=== PATIENT | male | born 1985 | race Caucasian/White ===

== ENCOUNTER → 2020-05-01 07:53 | Outpatient (BNVA) | payer OTHER, SELFPAY | PROVIDERS: Family Provider Family Medicine; Visit Provider Specialist | DX: G47.419 Narcolepsy without cataplexy (principal); G43.711 Chronic migraine without aura, intractable, with status migrainosus | CPT/HCPCS: 64615; 99214; J0585 ==

== ENCOUNTER 2022-07-07 16:25 | Emergency (ER) | payer OTHER, SELFPAY ==
[2022-07-07 16:37] VITALS: BP 145/97; PULSE 73; RESP 18; TEMP 37; O2SAT 98; BMI 274.0
--- NOTE | 2022-07-07 16:50 | W.ED.NAVMDI ---
HPI - Nausea/Vomiting/Diarrhea General: Chief complaint: Nausea/Vomiting/Diarrhea Stated complaint: Gi issues was sent from [facility] Time Seen by Provider: 07/07/22 16:47 History of Present Illness: 37-year-old male patient comes in today for complaints of persistent diarrhea with blood in for the last 2 weeks. Patient reports some mild weight loss. Patient denies any nausea or vomiting. Patient denies camping, travel outside the country or state, or fevers. Patient appears mildly unwell. Patient appears in no pain. Patient denies any chronic medical problems or recent surgeries. Patient was evaluated at the [facility] and was referred to the ER for further evaluation. Associated nausea: Yes Associated symtoms: Reports nausea; Denies chest pain Review of Systems General: Reports: 10 or more systems reviewed and unremarkable except in HPI and below Card: Denies: chest pain Resp: Denies: dyspnea GI: Reports: nausea, diarrhea and hematochezia; Denies: vomiting PFSH ED PFSH: Family History Other Cancer Hypertension Denies family history of Diabetes CAD (coronary artery disease) Stroke Social History Smoking and tobacco status: never smoked Alcohol intake: current Alcohol intake frequency: holidays/special occasions only History of recent travel: Yes Physical Exam Const: COMMON NORMALS: alert HENMT: COMMON NORMALS: normocephalic HEAD & SCALP: normocephalic Neck/C-Spine: COMMON NORMALS: full ROM Resp: COMMON NORMALS: normal respiratory effort Cardio: COMMON NORMALS: regular rate RATE: regular rate GI: AUSCULTATION: Yes normoactive bowel sounds PALPATION: No Tenderness to palpation present (GI) Extremity: COMMON NORMALS: normal to inspection Neuro: SENSORIUM/ORIENTATION: Yes alert Skin: COMMON NORMALS: no rashes or lesions noted GENERAL SKIN EXAM: no rashes or lesions noted Course Vital Signs: Vital signs: Vital Signs Temperature 98.6 F 07/07/22 16:37 Pulse Rate 62 07/07/22 17:43 Respiratory Rate 18 07/07/22 16:37 Blood Pressure 117/58 07/07/22 19:16 Pulse Oximetry 99 07/07/22 19:16 Oxygen Delivery Me thod 07/07/22 19:16 MDM - Nausea/Vomiting/Diarrhea Medical Decision Making 37-year-old male patient comes in today with complaints of diarrhea with blood in it for the last 3 weeks. Patient appears nontoxic. Patient appears in mild to no pain. On exam bowel sounds are present. Abdomen soft nontender. Vital signs are normal. Differential diagnosis includes infectious diarrhea, diverticulitis, colitis. CBC CMP were unremarkable. Stool for occult blood was negative. Lactoferrin was positive. CT of the abdomen and pelvis showed no acute pathology. Reviewed the exam with patient recommended treatment with Cipro 500 mg 1 tablet twice a day for 3 days. We had outstanding labs for stool cultures, O&P, and C. difficile. I requested case management for patient to be followed up with internal medicine regarding persistent bloody diarrhea and probable need for colonoscopy. Patient was agreeable to this plan. Lab Data : 07/07/22 17:30 07/07/22 17:30 Radiology Impressions Abdomen/Pelvis CT 07/07/22 17:28 IMPRESSION: No acute findings. Laboratory Results WBC 11.2 10^3/uL (4.0-10.0) H 07/07/22 17:30 RBC 5.47 10^6/uL (4.1-5.3) H 07/07/22 17:30 Hgb 15.7 g/dL (11.7-16.6) 07/07/22 17:30 Hct 46.2 % (42.0-52.0) 07/07/22 17:30 MCV 84.5 fl (80-94) 07/07/22 17:30 MCH 28.7 pg (28.0-34.0) 07/07/22 17:30 MCHC 34.0 g/dL (30.0-36.0) 07/07/22 17:30 RDW 12.5 % (12.1-15.1) 07/07/22 17:30 Plt Count 303 10^3/cmm (130-400) 07/07/22 17:30 MPV 9.5 fL (7.4-10.4) 07/07/22 17:30 Neut % (Auto) 74.2 % 07/07/22 17:30 Lymph % (Auto) 19.1 % 07/07/22 17:30 Lumpkin % (Auto) 4.9 % 07/07/22 17:30 Eos % (Auto) 0.7 % 07/07/22 17:30 Baso % (Auto) 0.7 % 07/07/22 17:30 Neut # (Auto) 8.26 10^3/uL (1.8-7.7) H 07/07/22 17:30 Lymph # (Auto) 2.1 10^3/uL (0.8-4.8) 07/07/22 17:30 [place]umpkin # (Auto) 0.6 10^3/uL (0.2-0.9) 07/07/22 17:30 Eos # (Auto) 0.1 10^3/uL (0.0-0.8) 07/07/22 17:30 Baso # (Auto) 0.1 10^3/uL (0.0-0.1) 07/07/22 17:30 Nucleated RBC % (auto) 0 % 07/07/22 17: Nucleated RBCs # 0.0 /100WBC 07/07/22 17:30 Sodium 140 mmol/L (136-145) 07/07/22 17:30 Potassium 3.7 mmol/L (3.5-5.1) 07/07/22 17:30 Chloride 105 mmol/L (98-107) 07/07/22 17:30 Carbon Dioxide 24 mmol/L (22-29) 07/07/22 17:30 Anion Gap 14.7 (5-19) 07/07/22 17:30 BUN 14 mg/dL (6-20) 07/07/22 17:30 Creatinine 0.8 mg/dL (0.7-1.2) 07/07/22 17:30 GFR Calculation 110.0 mL/min (90-130) 07/07/22 17:30 Glucose 97 mg/dL (65-115) 07/07/22 17:30 Calculated Osmolality 290 mOsm/kg (285-295) 07/07/22 17:30 Calcium 9.0 mg/dL (8.5-10.5) 07/07/22 17:30 Total Bilirubin 0.8 mg/dL (0.15-1.2) 07/07/22 17:30 AST 21 U/L (0-40) 07/07/22 17:30 ALT 26 U/L (0-41) 07/07/22 17:30 Alkaline Phosphatase 46 IU/L (40-130) 07/07/22 17:30 Total Protein 7.0 g/dL (6.6-8.7) 07/07/22 17:30 Albumin 4.5 g/dL (3.5-5.2) 07/07/22 17:30 Globulin 2.5 g/dL (1.3-4.6) 07/07/22 17:30 Lipase 34 U/L (13-60) 07/07/22 17:30 Urine Color Yellow (Yellow) 07/07/22 17:15 Urine Appearance Clear (CLEAR) 07/07/22 17:15 Urine pH 5 (5-7) 07/07/22 17:15 Ur Specific Pearl 1.025 (1.005-1.030) 07/07/22 17:15 Urine Protein Neg (Negative) 07/07/22 17:15 Urine Glucose (UA) Norm (Normal) 07/07/22 17:15 Urine Ketones Negative (Negative) 07/07/22 17:15 Urine Blood Neg (Negative) 07/07/22 17:15 Urine Nitrate Negative (Negative) 07/07/22 17:15 Urine Bilirubin Neg (Negative) 07/07/22 17:15 Urine Urobilinogen Norm mg/dL (Negative) 07/07/22 17:15 Ur Leukocyte Esterase Negative (Negative) 07/07/22 17:15 Discharge Plan Discharge Patient Disposition: Home Clinical Impression: Intestinal infection due to bacteria causing bloody diarrhea Condition: Stable Prescriptions: New ciprofloxacin HCl 500 mg tablet 500 mg PO BID Qty: 5 0RF No Action modafinil [Provigil] 100 mg tablet 300 mg PO DAILY ibuprofen [IBU] 800 mg tablet 800 mg PO Q8H PRN aspirin [Aspir-81] 81 mg tablet,delayed release (DR/EC) 81 mg PO DAILY bupropion HCl 300 mg tablet extended release 24 hr 300 mg PO QAM Discharge Orders: Discharge ED (Routine); Ordered 07/07/22 Ordered By: Shon Mckee Referrals: Rosalba Mota RESIDENTIAL ADVISOR-C [Primary Care Provider] - Discharge Diet: Usual diet Discharge Activity: Increase activity as tolerated Patient Instructions: Dehydration (ED) Activity Restrictions/Additional Instructions: Take Cipro 500 mg 1 tablet twice a day for a total of 6 doses. Drink plenty of water with medications. Follow-up with primary care. I will place an order with case management to have you follow-up with gastroenterology specialist for further evaluation for endoscopy. Return to the ER for fever greater than 100.4, inability to hold fluids down, or new concerns. Coding Level of Care Code ED Diversity Manager for Chg Fwd Exam Comprehensive
--- NOTE | 2022-07-07 17:28 | CTR_ITS ---
PROCEDURE INFORMATION: Exam: CT Abdomen And Pelvis With Contrast Exam date and time: 07/07/2022 6:49 PM Age: 37 years old Clinical indication: Other: Blood in stool; Additional info: Concern for infection or abscess, blood in stool TECHNIQUE: Imaging protocol: Computed tomography of the abdomen and pelvis with contrast. Radiation optimization: All CT scans at this facility use at least one of these dose optimization techniques: automated exposure control; mA and/or kV adjustment per patient size (includes targeted exams where dose is matched to clinical indication); or iterative reconstruction. Contrast material: OMNIPAQUE 350; Contrast volume: 90 ml; Contrast route: INTRAVENOUS (IV); COMPARISON: No relevant prior studies available. RADIATION DOSE METRICS: Total DLP (mGy-cm): 645.53 FINDINGS: Lungs: Lung bases are clear. Diaphragm: There is a small sliding-type hiatal hernia. Liver: The liver is normal. Gallbladder and bile ducts: The gallbladder is normal. There is no biliary dilation. Pancreas: The pancreas is unremarkable. Spleen: The spleen is unremarkable. Adrenal glands: The adrenal glands are unremarkable. Kidneys and ureters: The kidneys are unremarkable. No hydronephrosis or stones. No ureteral dilation. Stomach and bowel: The stomach is decompressed, preventing meaningful evaluation of wall thickness. The small bowel is nondilated. The colon is unremarkable. Appendix: The appendix is normal. Intraperitoneal space: There is no free air or significant intraperitoneal free fluid. Vasculature: The aorta is unremarkable. There is no aneurysm. The portal, splenic and superior mesenteric veins are patent. Lymph nodes: There is no lymphadenopathy in the retroperitoneum, mesentery, pelvis or inguinal regions. Urinary bladder: The urinary bladder is unremarkable. Reproductive: The prostate and seminal vesicles are unremarkable. Bones/joints: Bones are unremarkable. Soft tissues: There is a small fat containing umbilical hernia. CT/CT abdomen pelvis w con* [id number] IMPRESSION: No acute findings.
[2022-07-07 17:42] LABS: Basophils # 0.1 10^3/uL (0.0-0.1); Basophils % 0.7 %; Eosinophils # 0.1 10^3/uL (0.0-0.8); Eosinophils % 0.7 %; Hematocrit 46.2 % (42.0-52.0); Hemoglobin 15.7 g/dL (11.7-16.6); Lymphocytes # 2.1 10^3/uL (0.8-4.8); Lymphocytes % 19.1 %; Mean Corpuscular Hemoglobin 28.7 pg (28.0-34.0); Mean Corpuscular Volume 84.5 fl (80-94); Mean Platelet Volume 9.5 fL (7.4-10.4); Monocytes # 0.6 10^3/uL (0.2-0.9); Monocytes % 4.9 %; Neutrophils # 8.26 10^3/uL (1.8-7.7); Neutrophils % 74.2 %; Nucleated Red Blood Cells % 0 %; Platelet Count 303 10^3/cmm (130-400); Red Blood Count 5.47 10^6/uL (4.1-5.3); Red Cell Distribution Width 12.5 % (12.1-15.1); White Blood Count 11.2 10^3/uL (4.0-10.0)
[2022-07-07 17:43] VITALS: BP 116/66; PULSE 62; O2SAT 96
[2022-07-07 17:43] LABS: Add Urine Microscopic? NO; Charge for UA Resulting for Rev
[2022-07-07 17:44] LABS: Blood Urine Neg (Negative); Glucose Urine UA Norm (Normal); Ketones Urine Negative (Negative); Protein Urine Neg (Negative); Specific Gravity, Urine 1.025 (1.005-1.030); Urine Appearance Clear (CLEAR); Urine Color Yellow (Yellow); pH Urine 5 (5-7)
[2022-07-07 17:45] LABS: Bilirubin Urine Neg (Negative); Leukocyte Esterase Urine Negative (Negative); Nitrate Urine Negative (Negative); Urobilinogen Urine Norm (Negative)
[2022-07-07] MEDS: sodium chloride 0.9% 1,000 ML 999 ML IV (18:03)
[2022-07-07 18:12] LABS: Alanine Aminotransferase 26 U/L (0-41); Albumin Level 4.5 g/dL (3.5-5.2); Alkaline Phosphatase 46 IU/L (40-130); Aspartate Amino Transferase 21 U/L (0-40); Blood Urea Nitrogen 14 mg/dL (6-20); Carbon Dioxide 24 mmol/L (22-29); Chloride 105 mmol/L (98-107); Globulin 2.5 g/dL (1.3-4.6); Glucose 97 mg/dL (65-115); Lipase 34 U/L (13-60); Osmolality Calculated 290 mOsm/kg (285-295); Sodium 140 mmol/L (136-145); Total Bilirubin 0.8 mg/dL (0.15-1.2)
[2022-07-07 18:28] LABS: Anion Gap 14.7 (5-19); Potassium 3.7 mmol/L (3.5-5.1)
--- NOTE | 2022-07-07 19:02 | PC.NURSE ---
assumed care of patient at this time.
[2022-07-07 19:16] VITALS: BP 117/58; O2SAT 99
[2022-07-07] MEDS: ciprofloxacin 500 mg Tablet PO (19:43)
[2022-07-07 19:48] VITALS: PULSE 79; RESP 19; O2SAT 99
[2022-07-07] MEDS: iohexol 350 mg/mL 100 mL Btl IV (20:13)
--- NOTE | 2022-07-09 08:40 | DCPLANNER ---
Addendum entered by Kymberly Muro 08/13/22 09:28: Patient had a follow up appointment with - patient did attend appointment. Addendum entered by Kymberly Muro 07/29/22 15:53: Patient has a follow up appointment scheduled for , August 06, 2022 at 10:[address] Sherwood. Clinic will call patient with appointment information. Addendum entered by Kymberly Mruo 07/10/22 14:13: Patient has a follow up appointment scheduled for Friday, July 15, 2022 at 2:00 2:[address] Storm. Clinic will call patient with appointment information. Original Note: assistant auto center manager had message to schedule a follow up appointment for patient with internal medicine. assistant auto center manager sent patients information to the front office staff of internal medicine. Patients information will be printed and reviewed. Clinic will call patient with appointment information.
== END 2022-07-07 19:49 | disposition home or self-care (01) ==
PROVIDERS: Emergency Provider Nurse Practitioner Family; PCP Nurse Practitioner
DX: A04.9 Bacterial intestinal infection, unspecified (principal); Z79.82 Long term (current) use of aspirin
CPT/HCPCS: 74177; 80053; 81003; 82274; 83630; 83690; 85025; 87493; 87506; 96360; 99285; J7030; Q9967

== ENCOUNTER 2022-08-10 07:22 | Day surgery (SDC) | payer OTHER, SELFPAY ==
[2022-08-07 10:30] VITALS: BMI 25.8
[2022-08-10 07:50] VITALS: BP 128/94; PULSE 87; RESP 18; TEMP 36.4; O2SAT 93
[2022-08-10] MEDS: sodium chloride 0.9% 1,000 ML 30 ML IV (08:04)
--- NOTE | 2022-08-10 08:11 | W.PM.OPSFHP ---
Same Day Surgery H&P Indication for Procedure/HPI DATE OF PROCEDURE: August 10, 2022 CHIEF COMPLAINT/INDICATIONFOR SURGICAL PROCEDURE: Hematochezia PREOP DIAGNOSIS: Diarrhea PLANNED PROCEDURE: Operation Date: 08/10/22 09:00 Proposed Procedures p Colonoscopy 76226,K52.9(Not Applicable) - Zain Sherwood MD Medications/Allergies* Home Medications Medication Instructions Recorded Confirmed Type aspirin 81 mg tablet,delayed 81 mg PO DAILY 05/01/20 08/10/22 History release (Aspir-) bupropion HCl 300 mg 24 hr tablet, 300 mg PO QAM 05/01/20 08/10/22 History extended release ibuprofen 800 mg tablet (IBU) 800 mg PO Q8H PRN Pain 05/01/20 08/10/22 History modafinil 100 mg tablet (Provigil) 300 mg PO DAILY 05/01/20 08/10/22 History bismuth subsalicylate 262 mg 2 tab PO Q30M 08/06/22 08/10/22 History tablet (Pepto-Bismol) dicyclomine 20 mg tablet 20 mg PO TID 08/06/22 08/10/22 History prednisone 20 mg tablet 20 mg PO BID 08/06/22 08/10/22 History psyllium husk 0.4 gram capsule 0.4 g PO DAILY 08/06/22 08/10/22 History (Metamucil) Allergies/Adverse Reactions Allergy/AdvReac Type Severity Reaction Status Date / Time No Known Allergies Allergy Unverified 08/06/22 10:46 Current Medications: Generic Name Dose Route Start Last Admin Trade Name Freq PRN Reason Stop Dose Admin Sodium Chloride 1,000 mls @ 30 mls/hr 08/10/22 07:30 08/10/22 08:04 Sodium Chloride 0.9% IV 30 mls/hr .Q24H KIZZY Administration Pertinent History/Comorbid Conditions* Family History (Updated 05/01/20 @ 08:10 by Guillermina Doran LPN) Cancer Hypertension Denies family history of Diabetes CAD (coronary artery disease) Stroke Social History Smoking and tobacco status: never smoked Alcohol intake: current Alcohol intake frequency: holidays/special occasions only History of recent travel: Yes Pertinent Exam Findings alert, oriented x 3, clear to auscultation bilaterally, regular rate & rhythm, operative site marked and procedure specific exam findings Recommendations Surgery/Procedure today Coding Level of Care Code 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
--- NOTE | 2022-08-10 08:47 | ANES.PREANE2 ---
Pre-Anesthetic Assessment Height/Weight: Height 1.73 m Weight 77.111 kg Temp Pulse Resp BP Pulse Ox O2 Del Method 97.5 F L 87 18 128/94 93 08/10/22 07:50 08/10/22 07:50 08/10/22 07:50 08/10/22 07:50 08/10/22 07:50 08/10/22 07:50 Preop Diagnosis: Diarrhea Operation Date: 08/10/22 09:00 Proposed Procedures p Colonoscopy 17395,K52.9(Not Applicable) - Zain Sherwood MD Familial anesthetic complications: None Was Beta Fred taken within 24 hours: N/A Was Clonidine taken within 24 hours: N/A Last intake: Intake Last Liquid Date 08/10/22 Last Liquid Time 06:30 Last Solid Date 08/09/22 Last Solid Time 08:00 Social No alcohol and No tobacco Exam alert, oriented x 3, clear to auscultation bilaterally and regular rate & rhythm Airway Submandibular: within normal limits Cervical ROM: within normal limits Mallampati: Class I Dentition: full History/ROS No significant complaints Pulmonary None reported CV/HEM None reported None reported Hepatic None reported GI Chronic diarrhea Metabolic None reported Musc/skel None reported Neuropsych Headache Narcolepsy Anesthetic Plan ASA status: 2 Anesthesia: Anesthesia Evaluation, General and MAC Other: I discussed with the patient risks, goals, and benefits of MAC and general anesthesia. We discussed spectrum of MAC anesthesia including conversion to general as well as possibility of recall of intraoperative stimuli including discomfort/pain. Patient agrees to proceed with MAC. Risk of > 500 ml blood loss (7ml/kg in children): No Other Pertinent Information Recent prednisone use, tapered down to 20 mg daily Medications/Allergies Home Medications Medication Instructions Recorded Confirmed Last Taken Type aspirin 81 mg tablet,delayed 81 mg PO DAILY 05/01/20 08/10/22 08/08/22 History release (Aspir-) bupropion HCl 300 mg 24 hr tablet, 300 mg PO QAM 05/01/20 08/10/22 08/08/22 History extended release ibuprofen 800 mg tablet (IBU) 800 mg PO Q8H PRN Pain 05/01/20 08/10/22 08/08/22 History modafinil 100 mg tablet (Provigil) 300 mg PO DAILY 05/01/20 08/10/22 08/08/22 History bismuth subsalicylate 262 mg 2 tab PO Q30M 08/06/22 08/10/22 08/08/22 History tablet (Pepto-Bismol) dicyclomine 20 mg tablet 20 mg PO TID 08/06/22 08/10/22 08/08/22 History prednisone 20 mg tablet 20 mg PO BID 08/06/22 08/10/22 08/08/22 History psyllium husk 0.4 gram capsule 0.4 g PO DAILY 08/06/22 08/10/22 08/08/22 History (Metamucil) Allergies Allergy/AdvReac Type Severity Reaction Status Date / Time No Known Allergies Allergy Unverified 08/06/22 10:46 Current Medications Generic Name Dose Route Start Last Admin Trade Name Freq PRN Reason Stop Dose Admin Sodium Chloride 1,000 mls @ 30 mls/hr 08/10/22 07:30 08/10/22 08:04 Sodium Chloride 0.9% IV 30 mls/hr .Q24H KIZZY Administration PFSH Anesthesia Family History Other Cancer Hypertension Denies family history of Diabetes CAD (coronary artery disease) Stroke Social History Smoking and tobacco status: never smoked Alcohol intake: current Alcohol intake frequency: holidays/special occasions only History of recent travel: Yes Data Anesthesia Cardiac Studies: No Data to Display
[2022-08-10 10:01] VITALS: BP 108/76; PULSE 81; RESP 16; TEMP 36.1; O2SAT 97
[2022-08-10 10:10] VITALS: BP 102/88; PULSE 83; RESP 18; O2SAT 93
--- NOTE | 2022-08-10 11:05 | ANE.PACU2 ---
Inpatient post-anesthesia follow up: Airway intact: Yes Vital signs: Temperature 97.0 F Pulse Rate 83 Respiratory Rate 18 Blood Pressure 102/88 Pulse Oximetry 93 Oxygen Delivery Me thod Room Air Oxygen Flow Rate 3 Fraction of Inspir ed Oxygen Hydration adequate: Yes Nausea and vomiting: No Pain level: 1 Mental status: Baseline
[2022-08-11 07:24] LABS: H. Pylori / CLO Test Positive
== END 2022-08-10 10:41 | disposition home or self-care (01) ==
PROVIDERS: PCP Nurse Practitioner; Visit Provider Internal Medicine
PROC: 0DJD8ZZ Inspection of Lower Intestinal Tract, Via Natural or Artificial Opening Endoscopic (ICD-10-PCS; CPT 45378; principal; 2022-08-10 09:00)
PROC: 0DJ08ZZ Inspection of Upper Intestinal Tract, Via Natural or Artificial Opening Endoscopic (ICD-10-PCS; CPT 43235; 2022-08-10 09:00)
DX: K29.70 Gastritis, unspecified, without bleeding (principal); K25.9 Gastric ulcer, unspecified as acute or chronic, without hemorrhage or perforation; K29.80 Duodenitis without bleeding; Z79.82 Long term (current) use of aspirin
CPT/HCPCS: 43239; 45378; 82274; 83630; 87077; 87493; 87506; 88305; J2704; J7030

== ENCOUNTER 2023-02-18 23:23 | Emergency (ER) | payer OTHER, SELFPAY ==
[2023-02-18 23:47] VITALS: BP 162/95; PULSE 86; RESP 20; TEMP 36.5; O2SAT 99; BMI 27.3
--- NOTE | 2023-02-19 01:20 | CTR_ITS ---
PROCEDURE INFORMATION: Exam: CT Abdomen And Pelvis Without Contrast Exam date and time: 02/19/2023 1:30 AM Age: 37 years old Clinical indication: Abdominal pain; Right; Patient HX: C/O RT flank pain TECHNIQUE: Imaging protocol: Computed tomography of the abdomen and pelvis without contrast. Radiation optimization: All CT scans at this facility use at least one of these dose optimization techniques: automated exposure control; mA and/or kV adjustment per patient size (includes targeted exams where dose is matched to clinical indication); or iterative reconstruction. REPORTING DATA: Count of CT and Cardiac NM exams in prior 12 months: This patient has received [address] and 0 known cardiac nuclear medicine studies in the 12 months prior to the current study. COMPARISON: CT abdomen pelvis w con* [id number] 07/07/2022 6:36 PM RADIATION DOSE METRICS: Total DLP (mGy-cm): 596.27 FINDINGS: Lungs: The visualized lung bases are clear. Liver: Unremarkable. No discrete mass. Gallbladder and bile ducts: No calcified gallstones or biliary dilation identified. Pancreas: Unremarkable with no suspicious mass. No ductal dilation. Spleen: The spleen is not enlarged. No suspicious mass is noted. Adrenal glands: Normal. No mass. Kidneys and ureters: Right UVJ 2.5 mm calculus causing mild obstruction. Stomach and bowel: Fecal filled colon. No small bowel dilation. Appendix: Normal appendix. Intraperitoneal space: Unremarkable. No free air. No suspicious fluid collection. Vasculature: No AAA or acute vascular lesion identified. Lymph nodes: No enlarged lymph nodes. Urinary bladder: Unremarkable as visualized. Reproductive: Unremarkable as visualized. Bones/joints: No acute fracture. Soft tissues: Small fat umbilical hernia. CT/CT kidney stone [id number] IMPRESSION: 1. Right UVJ 2.5 mm calculus causes mild obstruction. 2. A few chronic findings above.
[2023-02-19 01:21] LABS: Basophils % 0.3 %; Eosinophils % 0.3 %; Hematocrit 42.7 % (42.0-52.0); Hemoglobin 14.5 g/dL (11.7-16.6); Lymphocytes # 1.7 10^3/uL (0.8-4.8); Lymphocytes % 12.1 %; Mean Corpuscular Hemoglobin 29.1 pg (28.0-34.0); Mean Corpuscular Volume 85.6 fl (80-94); Mean Platelet Volume 9.4 fL (7.4-10.4); Monocytes # 0.8 10^3/uL (0.2-0.9); Monocytes % 5.9 %; Neutrophils # 11.36 10^3/uL (1.8-7.7); Nucleated Red Blood Cells % 0 %; Platelet Count 296 10^3/cmm (130-400); Red Blood Count 4.99 10^6/uL (4.1-5.3); Red Cell Distribution Width 12.9 % (12.1-15.1)
--- NOTE | 2023-02-19 01:29 | ED_ITS ---
HPI - Male Genitourinary General: Chief complaint: Urogenital-Male Stated complaint: pt thinks he has kidney stones Time Seen by Provider: 02/19/23 01:21 Source: patient Mode of arrival: ambulatory Limitations: no limitations History of Present Illness: 37-year-old male states that over the last 3 days been having right flank pain that got much worse tonight. He states that he states the pain feels like it is deep in nature he rates it a 8 out of 10. Patient denies any vomiting has had some slight nausea he has no history of kidney stones denies any dysuria. Associated symptoms: Deny nausea or vomiting Review of Systems Const: Denies: fever(s), chills, body aches or change in appetite Eyes: Denies: blurry vision or eye discomfort ENMT: Denies: throat pain or dental pain Card: Denies: chest pain Resp: Denies: dyspnea GI: Denies: abdominal pain, nausea, vomiting or diarrhea : Reports: flank pain Musc: Denies: neck pain or back pain Skin/Breast: Denies: rash Neuro: Denies: headache(s) Psych: Denies: depression Chavez/Lymph: Denies: easy bruising All/Imm: Denies: urticaria PFSH ED PFSH: Medical History Alopecia areata Concussion with loss of consciousness of unspecified duration, initial encounter Knee pain Major depressive disorder, recurrent, unspecified Muscle spasm of back Other intervertebral disc degeneration, lumbar region PTSD (post-traumatic stress disorder) Segmental and somatic dysfunction of cervical region Segmental and somatic dysfunction of lumbar region Traumatic brain injury Family History Other Cancer Hypertension Denies family history of Diabetes CAD (coronary artery disease) Stroke Social History Smoking and tobacco status: never smoked Alcohol intake: current Alcohol intake frequency: holidays/special occasions only Physical Exam Const: COMMON NORMALS: no acute distress, patient oriented x3 and healthy appearing HENMT: COMMON NORMALS: normocephalic and atraumatic HEAD & SCALP: normocephalic and atraumatic Eye: COMMON NORMALS: Equal, round and reactive pupils present and EOMs intact bilaterally PUPIL: Yes Equal, round and reactive pupils present Neck/C-Spine: COMMON NORMALS: full ROM and supple Chest: COMMONS NORMALS: normal inspection of the chest and normal palpation of entire chest wall Resp: COMMON NORMALS: normal respiratory effort, No retractions, No use of accessory muscles and clear to auscultation bilaterally AUSCULTATION: clear to auscultation bilaterally Cardio: COMMON NORMALS: regular rate, regular rhythm and No murmurs present (Cardio) RATE: regular rate RHYTHM: regular rhythm GI: COMMON NORMALS: Normal to inspection, nondistended, normoactive bowel sounds present, Soft to palpation, non-tender and no masses PALPATION: Yes Soft to palpation Extremity: COMMON NORMALS: normal to inspection and full ROM Neuro: COMMON NORMALS: patient oriented x3, moves all extremities and no focal motor deficits Psych: COMMON NORMALS: mental status grossly normal, Normal thought process present and cooperative THOUGHT PROCESS: Normal thought process present Skin: COMMON NORMALS: no rashes or lesions noted and no wounds GENERAL SKIN EXAM: no rashes or lesions noted Course Vital Signs: Vital signs: Vital Signs Temperature 97.7 F 02/18/23 23:47 Pulse Rate 60 02/19/23 03:30 Respiratory Rate 16 02/19/23 03:30 Blood Pressure 134/81 02/19/23 03:30 Pulse Oximetry 95 02/19/23 03:30 Oxygen Delivery Me thod 02/18/23 23:47 MDM - Male Medical Decision Making Patient presents with kidney stone pain is much improved here is 2.5 mm likely should pass he is stable for discharge he is to follow-up with PCP and return if worsening. Lab Data 02/18/23 01:09 02/18/23 01:09 Radiology Impressions Abdomen/Pelvis CT 02/19/23 01:20 IMPRESSION: 1. Right UVJ 2.5 mm calculus causes mild obstruction. 2. A few chronic findings above. Laboratory Results WBC 14.0 10^3/uL (4.0-10.0) H 02/18/23 01:09 RBC 4.99 10^6/uL (4.1-5.3) 02/18/23 01:09 Hgb 14.5 g/dL (11.7-16.6) 02/18/23 01:09 Hct 42.7 % (42.0-52.0) 02/18/23 01:09 MCV 85.6 fl (80-94) 02/18/23 01:09 MCH 29.1 pg (28.0-34.0) 02/18/23 01:09 MCHC 34.0 g/dL (30.0-36.0) 02/18/23 01:09 RDW 12.9 % (12.1-15.1) 02/18/23 01:09 Plt Count 296 10^3/cmm (130-400) 02/18/23 01:09 MPV 9.4 fL (7.4-10.4) 02/18/23 01:09 Neut % (Auto) 81.0 % 02/18/23 01:09 Lymph % (Auto) 12.1 % 02/18/23 01:09 [place] % (Auto) 5.9 % 02/18/23 01:09 Eos % (Auto) 0.3 % 02/18/23 01:09 Baso % (Auto) 0.3 % 02/18/23 01:09 Neut # (Auto) 11.36 10^3/uL (1.8-7.7) H 02/18/23 01:09 Lymph # (Auto) 1.7 10^3/uL (0.8-4.8) 02/18/23 01:09 [place] # (Auto) 0.8 10^3/uL (0.2-0.9) 02/18/23 01:09 Eos # (Auto) 0.0 10^3/uL (0.0-0.8) 02/18/23 01:09 Baso # (Auto) 0.0 10^3/uL (0.0-0.1) 02/18/23 01:09 Nucleated RBC % (auto) 0 % 02/18/23 01:09 Nucleated RBCs # 0.0 /100WBC 02/18/23 01:09 Sodium 137 mmol/L (136-145) 02/18/23 01:09 Potassium 4.0 mmol/L (3.5-5.1) 02/18/23 01:09 Chloride 102 mmol/L (98-107) 02/18/23 01:09 Carbon Dioxide 23 mmol/L (22-29) 02/18/23 01:09 Anion Gap 16.0 (5-19) 02/18/23 01:09 BUN 20 mg/dL (6-20) 02/18/23 01:09 Creatinine 2.0 mg/dL (0.7-1.2) H 02/18/23 01:09 GFR Calculation 38.2 mL/min (90-130) L 02/18/23 01:09 Glucose 99 mg/dL (65-115) 02/18/23 01:09 Calculated Osmolality 287 mOsm/kg (285-295) 02/18/23 01:09 Calcium 9.4 mg/dL (8.5-10.5) 02/18/23 01:09 Total Bilirubin 0.7 mg/dL (0.15-1.2) 02/18/23 01:09 AST 18 U/L (0-40) 02/18/23 01:09 ALT 17 U/L (0-41) 02/18/23 01:09 Alkaline Phosphatase 55 U/L (40-130) 02/18/23 01:09 Total Protein 7.3 g/dL (6.6-8.7) 02/18/23 01:09 Albumin 4.2 g/dL (3.5-5.2) 02/18/23 01:09 Globulin 3.1 g/dL (1.3-4.6) 02/18/23 01:09 Lipase 28 U/L (13-60) 02/18/23 01:09 Urine Color Yellow (Yellow) 02/19/23 01:30 Urine Appearance Clear (CLEAR) 02/19/23 01:30 Urine pH 5 (5-7) 02/19/23 01:30 Ur Specific [place] 1.020 (1.005-1.030) 02/19/23 01:30 Urine Protein Neg (Negative) 02/19/23 01:30 Urine Glucose (UA) Norm (Normal) 02/19/23 01:30 Urine Ketones 1+ (Negative) H 02/19/23 01:30 Urine Blood Neg (Negative) 02/19/23 01:30 Urine Nitrate Negative (Negative) 02/19/23 01:30 Urine Bilirubin Neg (Negative) 02/19/23 01:30 Urine Urobilinogen Norm mg/dL (Negative) 02/19/23 01:30 Ur Leukocyte Esterase Negative (Negative) 02/19/23 01:30 Discharge Plan Discharge Patient Disposition: Home Clinical Impression: Kidney stone Condition: Stable Prescriptions: New hydrocodone-acetaminophen 5-325 mg tablet 1 tab PO Q6H PRN (Reason: pain) Qty: 14 0RF ondansetron 4 mg tablet,disintegrating 4 mg PO Q6H PRN (Reason: nausea and vomiting) Qty: 14 0RF No Action modafinil [Provigil] 100 mg tablet 300 mg PO DAILY bupropion HCl 300 mg tablet extended release 24 hr 300 mg PO QAM dicyclomine 20 mg tablet 20 mg PO TID bimatoprost [Latisse] 0.03 % drops with applicator 1 applic topical DAILY Qty: 5 0RF clobetasol 0.05 % solution 1 applic topical BID 14 Days Qty: 50 3RF Rx Instructions: Apply a few drops to itchy areas on scalp as needed pantoprazole 40 mg tablet,delayed release (DR/EC) 40 mg PO DAILY Qty: 90 8RF Discharge Orders: Discharge ED (Routine); Ordered 02/19/23 Ordered By: Shantanu Brown Referrals: José Otero MD [Physician] - 1-3 days Rosalba Mota NP-C [Primary Care Provider] - 1-3 days Discharge Diet: Advance as tolerated Discharge Activity: Resume usual activity Patient Instructions: Kidney Stones (ED), Opioid Safety, Pain Management Coding Level of Care Code ED Support Services Rep for Aileen Canela
[2023-02-19 01:36] LABS: Add Urine Microscopic? NO; Charge for UA Resulting for Rev; Glucose Urine UA Norm (Normal); Ketones Urine 1+ (Negative); Protein Urine Neg (Negative); Urine Appearance Clear (CLEAR); Urine Color Yellow (Yellow); pH Urine 5 (5-7)
[2023-02-19 01:37] LABS: Bilirubin Urine Neg (Negative); Blood Urine Neg (Negative); Leukocyte Esterase Urine Negative (Negative); Nitrate Urine Negative (Negative); Urobilinogen Urine Norm (Negative)
[2023-02-19 01:43] LABS: Alanine Aminotransferase 17 U/L (0-41); Albumin Level 4.2 g/dL (3.5-5.2); Alkaline Phosphatase 55 U/L (40-130); Aspartate Amino Transferase 18 U/L (0-40); Blood Urea Nitrogen 20 mg/dL (6-20); Calcium 9.4 mg/dL (8.5-10.5); Carbon Dioxide 23 mmol/L (22-29); Chloride 102 mmol/L (98-107); Globulin 3.1 g/dL (1.3-4.6); Glomerular Filtration Rate 38.2 mL/min (90-130); Glucose 99 mg/dL (65-115); Lipase 28 U/L (13-60); Osmolality Calculated 287 mOsm/kg (285-295); Sodium 137 mmol/L (136-145); Total Bilirubin 0.7 mg/dL (0.15-1.2); Total Protein 7.3 g/dL (6.6-8.7)
[2023-02-19] MEDS: sodium chloride 0.9% 1,000 ML 999 ML IV (01:44)
[2023-02-19] MEDS: ondansetron 2 mg/ML SDV 2 mL 4 MG IVP (01:44)
[2023-02-19] MEDS: HYDROmorphone 1 mg/mL INJ 1 mL IVP ×2 (01:44→03:04)
[2023-02-19 01:45] VITALS: BP 147/82; PULSE 83; RESP 16; O2SAT 97
[2023-02-19 01:56] LABS: Creatinine Clr Calc Pharmacy 53.7387
[2023-02-19 02:41] VITALS: BP 138/51; PULSE 71; RESP 16; O2SAT 98
[2023-02-19 03:01] VITALS: BP 151/88; PULSE 71; RESP 16; O2SAT 96
[2023-02-19 03:30] VITALS: BP 134/81; PULSE 60; RESP 16; O2SAT 95
== END 2023-02-19 03:50 | disposition home or self-care (01) ==
PROVIDERS: Emergency Provider Emergency Medicine; PCP Nurse Practitioner
DX: N20.0 Calculus of kidney (principal)
CPT/HCPCS: 74176; 80053; 81003; 83690; 85025; 96361; 96374; 96375; 96376; 99285; J1170; J2405; J7030

== ENCOUNTER 2023-06-18 07:46 | Outpatient (CLI) | payer OTHER, SELFPAY ==
--- NOTE | 2023-06-18 08:00 | CT_ITS ---
WS: [id number] CT chest wo con [id number] HISTORY: R PARAHILAR NODULE OF UNDETERMINED ETIOLOGY TECHNIQUE: Axial imaging performed through the thorax. Coronal and sagittal reformats are submitted. All CT scans at [facility] use at least one of these dose optimization techniques: automated exposure control; mA and/or kV adjustment per patient size (includes targeted exams where dose is mat ched to clinical indication); or iterative reconstruction. CONTRAST: Omnipaque 350; 100 mL IV. DLP: 247.65 mGy.cm COMPARISON: 02/19/2023 lung bases. Lungs and central airway: Normally aerated lungs. Lobulated nodule measuring 10 x 7 mm with adjacent very small satellite nodules RIGHT lower lobe. These are well-circumscribed nodules. There is an kalpesh tional groundglass nodule in the RIGHT lower lobe measuring 12 x 11 mm which was present on the study of 02/19/2023 and may have slightly increased in size. Noted additional mass or nodule. Pleura: Normal. No pleural effusion. Heart and pericardium: Normal size heart with no pericardial effusion. Mediastinum and jack: Densely calcified RIGHT hilar lymph nodes. Otherwise no significant adenopathy. Increased soft tissue in the anterior mediastinal fat may be residual thymic tissue. Vessels: Normal size aortic and pulmonary artery. No coronary artery calcifications. Chest wall and lower neck: No soft tissue masses. Upper abdomen: No acute abnormalities. Increased fecal material in the visualized transverse colon. Osseous structures: No destructive process. CT/CT chest wo con [id number] IMPRESSION: 1. RIGHT lower lobe lobulated noncalcified nodule measures 10 x 7 mm with paul cent smaller satellite nodules. Probably benign but will need to be further alex luated with serial imaging. 2. Additional groundglass nodule in the RIGHT lower lobe measuring 12 x 11 mm. Will need additional imaging to exclude low-grade neoplasm. 3. Densely calcified RIGHT hilar lymph nodes. 4. Recommendation: Follow-up chest CT in 3 months.
== END 2023-06-18 07:47 | disposition home or self-care (01) ==
PROVIDERS: PCP Nurse Practitioner; Visit Provider Nurse Practitioner
DX: R91.1 Solitary pulmonary nodule (principal)
CPT/HCPCS: 71250

== ENCOUNTER → 2023-07-06 13:54 | Outpatient (BNVA) | payer OTHER, SELFPAY | PROVIDERS: PCP Nurse Practitioner; Referring Provider Nurse Practitioner; Visit Provider Internal Medicine Pulmonary Disease | DX: R91.8 Other nonspecific abnormal finding of lung field (principal) | CPT/HCPCS: 99204 ==

== ENCOUNTER 2023-07-24 10:00 | Outpatient (CLI) | payer OTHER, SELFPAY ==
--- NOTE | 2023-07-24 10:00 | PETR_ITS ---
PROCEDURE INFORMATION: Exam: PET/CT Skull Base to Mid-thigh Exam date and time: 07/24/2023 10:34 AM Age: 38 years old Clinical indication: Abnormal findings; Two lung nodules; Additional info: Lung nodule LABS AND CLINICAL REPORTS: Glucose: 85 mg/dl Treatment strategy for malignancy (PET staging): Initial Staging (PI) TECHNIQUE: Imaging protocol: Following at least four-hour fasting and following the injection of radiopharmaceutical, low dose CT images were obtained. Then, PET images were obtained. Attenuation corrected images were constructed using the CT scan. Fused images of PET and CT were reviewed. The standardized uptake values (SUV) reported below are maximum values within a region of interest, expressed in gm/ml. Exam includes orbital meatal line to mid-thigh. Radiopharmaceutical: 15.18 mCi F-18 FDG (Fluorodeoxyglucose), IV. Time of imaging post radiopharmaceutical administration: 74.2 minutes. Injection site: Left antecubital vein none carried from their car few on 0840 minutes together subcu okay whenever COMPARISON: CT chest wo con [id number] 06/18/2023 8:00 AM FINDINGS: Brain: Visualized brain has normal physiologic uptake. Pharynx: No abnormal uptake. Larynx: No abnormal uptake. Lungs, pleura and trachea: In the right lower lobe, at the lateral aspect of the superior segment, a smooth ovoid pulmonary nodule is 10 x 7 x 8 mm. It is not FDG avid. Its max SUV is only 1.1. However, because its volume is small (only 0.3 mL), its true max SUV may be underestimated due to partial volume artifact. In the right lower lobe, at the posterior basal segment, a ground-glass opacity is 8 x 12 x 9 mm (series 3, image 65). It is not FDG avid. Its SUV max is only 1.1. However, PET imaging is inherently insensitive for detection of cancer within ground-glass nodules. Mild asymmetric FDG avidity at the right pulmonary hilum has a max SUV of 3.8 (compared to 2.4 at the left pulmonary hilum) (image 53). It is borderline and nonspecific. A 1.7 cm calcification at the right pulmonary hilum is consistent with remote granulomatous disease. Heart: Normal physiologic uptake. Mediastinal space: No abnormal uptake. Liver: No abnormal uptake. Gallbladder and bile ducts: No abnormal uptake. Pancreas: No abnormal uptake. Spleen: No abnormal uptake. Adrenal glands: No abnormal uptake. Kidneys and ureters: Normal physiologic uptake. Stomach and bowel: No abnormal uptake. Appendix: The appendix is normal in caliber without surrounding inflammation. Vasculature: No abnormal uptake. Lymph nodes: No FDG avid lymph nodes. Bones/joints: No metabolically active areas. Soft tissues: A small fat containing umbilical hernia is only 2.0 cm in greatest dimension. PET[facility] [place] SUBSEQ [id number] IMPRESSION: 1. In the right lower lobe, at the lateral aspect of the superior segment, a smooth ovoid pulmonary nodule is 10 x 7 x 8 mm. It is not FDG avid. Its max SUV is only 1.1. However, because its volume is small (only 0.3 mL), its true max SUV may be underestimated due to partial volume artifact. Lung cancer is statistically unlikely at this age. A follow-up CT is recommended in 6 months in order to document stability. 2. In the right lower lobe, at the posterior basal segment, a ground-glass opacity is 8 x 12 x 9 mm. It is not FDG avid. Its max SUV is only 1.1. 3. No FDG avid lymph nodes.
== END 2023-07-24 10:01 | disposition home or self-care (01) ==
LOC: RAD 07-26 05:47
PROVIDERS: PCP Nurse Practitioner; Visit Provider Internal Medicine Pulmonary Disease
DX: R91.1 Solitary pulmonary nodule (principal)
CPT/HCPCS: 78815; A9552

== ENCOUNTER 2023-12-17 10:29 | Outpatient (CLI) | payer OTHER, SELFPAY ==
--- NOTE | 2023-12-17 11:00 | CT_ITS ---
WS: [id number] CT chest wo con [id number] HISTORY: Follow Up lung lesion TECHNIQUE: Axial imaging performed through the thorax. Coronal and sagittal reformats are submitted. All CT scans at [facility] use at least one of these dose optimization techniques: automated exposure control; mA and/or kV adjustment per patient size (includes targeted exams where dose is mat ched to clinical indication); or iterative reconstruction. CONTRAST: None DLP: 412.31 mGy.cm COMPARISON: 06/18/2023 and PET/CT 07/24/2023 Lungs and central airway: PET/CT negative nodule noted in the superior segment of the RIGHT lower lob e is reidentified. This nodule measures 9 mm and is beginning to calcify centrally. There are small a djacent satellite nodules which are stable. Groundglass nodule measuring 11 x 10 mm in the RIGHT lowe r lobe at the base is reidentified and unchanged in size. This was also FDG negative. No new mass or nodule. Pleura: Normal. No pleural effusion. Heart and pericardium: Normal size heart with no pericardial effusion. Mediastinum and jack: Densely calcified RIGHT hilar lymph nodes. No additional adenopathy. Mildly pro minent thymic tissue is unchanged. Vessels: Normal size aortic and pulmonary artery. No coronary artery calcifications. Chest wall and lower neck: No soft tissue masses. Upper abdomen: No adrenal mass. Focal fatty sparing along the falciform ligament. Osseous structures: No destructive process. IMPRESSION: 1. No interval change well-circumscribed 9 mm nodule in the RIGHT lower lobe that was FDG negative. Developing calcification suggest this is probably granulomatous in etiology. 2. Groundglass nodule in the RIGHT lower lobe unchanged measuring 11 x 10 mm. Consider 12-month ches t CT follow-up to document long-term stability for low-grade neoplasm.
== END 2023-12-17 10:30 | disposition home or self-care (01) ==
LOC: RAD 10:30
PROVIDERS: PCP Nurse Practitioner; Visit Provider Internal Medicine Pulmonary Disease
DX: R91.1 Solitary pulmonary nodule (principal)
CPT/HCPCS: 71250

== ENCOUNTER → 2024-05-25 08:46 | Outpatient (BNVA) | payer OTHER, SELFPAY | PROVIDERS: PCP Nurse Practitioner; Referring Provider Nurse Practitioner; Visit Provider Physician Assistant | DX: M23.307 Other meniscus derangements, unspecified meniscus, left knee; M23.306 Other meniscus derangements, unspecified meniscus, right knee; M25.562 Pain in left knee; M25.561 Pain in right knee | CPT/HCPCS: 20610; 73560; 73565; 99203; J3301 ==

== ENCOUNTER 2024-06-22 13:28 | Outpatient (CLI) | payer OTHER, SELFPAY ==
--- NOTE | 2024-06-22 13:45 | IR_ITS ---
WS: [id number] LEFT KNEE ARTHROGRAM Fluoroscopic guided left knee arthrogram. CLINICAL INFORMATION: left knee pain COMPARISON: None. TECHNIQUE: The procedure including risks, benefits, and complications were discussed with the patient , who agreed to proceed. Timeout was performed. Using sterile technique, the patient was prepped and draped in the usual sterile fashion. After 1% lidocaine injection using fluoroscopic guidance, a 22-g auge spinal needle was advanced into the left patellofemoral compartment. Subsequently 40 cc of a mix ture containing 20 cc normal saline, 20 cc Omnipaque 240 was administered. No immediate complications . FLUOROSCOPY TIME: 1min [id number] # of spot films: 3 IR/[place] [id number] IMPRESSION: Uncomplicated left knee fluoroscopic guided arthrogram. CT to follow.
--- NOTE | 2024-06-22 13:45 | CT_ITS ---
WS: [email or web address] CT LEFT KNEE ARTHROGRAM TECHNIQUE: CT LEFT knee arthrogram with coronal and sagittal reformatted images. CLINICAL INFORMATION: left knee pain history of prior knee surgery DLP: 500.[address] scans at [facility] use at least one of these dose optimization techniques: automated e xposure control; mA and/or kV adjustment per patient size (includes targeted exams where dose is matc hed to clinical indication); or iterative reconstruction. FINDINGS: ACL and PCL appear intact. Lateral meniscus appears intact with mild chronic thinning. Peripheral ext rusion of the medial meniscus. Blunting of the anterior horn medial meniscus with suspected tear exte nding to the meniscal root. Some of this may be due to prior postoperative changes with meniscectomy. Recommend correlation with surgical history. Mild chondromalacia patella worse in the lateral patellar facet with small amount of chondral fissuri ng. No acute fractures. Normal medial collateral ligament. Lateral collateral ligament appears intact . Fibula head appears intact. Tiny popliteal cyst. CT/CT knee LT w con [id number] IMPRESSION: 1. ACL and PCL appear intact. 2. Mild chondromalacia patella worse involving the lateral patellar facet with a small amount of chondral fissuring. 3. No acute fractures. 4. Peripheral extrusion with blunting of the anterior horn medial meniscus cordelia picious for meniscal root tear. Some this may be due to prior partial meniscect macie. Recommend correlation with surgical history. 5. Lateral meniscus appears intact with chronic thinning.
== END 2024-06-22 13:29 | disposition home or self-care (01) ==
LOC: RAD 13:29
PROVIDERS: PCP Nurse Practitioner; Visit Provider Physician Assistant
DX: M23.305 Other meniscus derangements, unspecified medial meniscus, unspecified knee (principal); M25.562 Pain in left knee; M22.42 Chondromalacia patellae, left knee
CPT/HCPCS: 27369; 73701; 77002

== ENCOUNTER 2024-06-23 13:03 | Outpatient (CLI) | payer OTHER, SELFPAY ==
--- NOTE | 2024-06-23 13:45 | CT_ITS ---
WS: [email or web address] CT RIGHT KNEE ARTHROGRAM TECHNIQUE: CT RIGHT knee arthrogram with coronal and sagittal reformatted images. CLINICAL INFORMATION: right knee pain DLP: 527.[address] scans at [facility] use at least one of these dose optimization techniques: automated e xposure control; mA and/or kV adjustment per patient size (includes targeted exams where dose is matc hed to clinical indication); or iterative reconstruction. FINDINGS: Prior postoperative changes ACL repair with femoral and tibial fixation screws. High-grade complete o r near complete tear of the mid ACL graft. Proximal and distal graft appears intact within the femora l and tibial tunnels. Central graft appears discontinuous with dissecting contrast. PCL appears intact. Chronic thinning of the lateral meniscus which appears grossly intact. Chronic ap pearing tear of the medial meniscus with presumed partial meniscectomy. Moderate narrowing of the med ial joint compartment. Normal medial and lateral collateral ligaments. Osteochondral lesion with surrounding sclerosis involving the lateral femoral condyle measuring [address]/CT knee RT w con [id number] IMPRESSION: 1. Prior postoperative changes of ACL repair 2. High-grade complete or near complete tear of the mid ACL graft. 3. PCL appears intact. 4. Presumed partial medial meniscectomy with moderate joint space narrowing. 5. Osteochondral lesion with surrounding sclerosis involving the lateral femor al condyle measuring 3 mm.
--- NOTE | 2024-06-23 13:45 | IR_ITS ---
WS: [email or web address] RIGHT KNEE ARTHROGRAM Fluoroscopic guided right knee arthrogram. CLINICAL INFORMATION: Knee pain TECHNIQUE: The procedure including risks, benefits, and complications were discussed with the patient , who agreed to proceed. Timeout was performed. Using sterile technique, the patient was prepped and draped in the usual sterile fashion. After 1% lidocaine injection using fluoroscopic guidance, a 22-g auge spinal needle was advanced into the RIGHT patellofemoral compartment. Subsequently 40 cc of a mi xture containing 5 cc 1% lidocaine, 20 cc normal saline, 20 cc Omnipaque 240 was administered. No imm ediate complications. FLUOROSCOPY TIME: 1min [id number] # of spot films: 3 IR/[place] [id number] IMPRESSION: Uncomplicated right knee fluoroscopic guided arthrogram. CT to follow.
[2024-06-23] MEDS: iohexol 240 mg/mL 50 mL Btl 20 ML INTRA-ARTI (15:09)
== END 2024-06-23 13:04 | disposition home or self-care (01) ==
LOC: RAD 13:04
PROVIDERS: PCP Nurse Practitioner; Visit Provider Physician Assistant
DX: S83.281A Other tear of lateral meniscus, current injury, right knee, initial encounter (principal); M25.861 Other specified joint disorders, right knee; S83.511A Sprain of anterior cruciate ligament of right knee, initial encounter; Z96.7 Presence of other bone and tendon implants
CPT/HCPCS: 27369; 73701; 77002; Q9966

== ENCOUNTER 2025-04-10 13:46 | Emergency (ER) | payer OTHER, SELFPAY ==
--- NOTE | 2025-04-10 13:55 | CT_ITS ---
WS: [email or web address] CT HEAD NONCONTRAST HISTORY: dizzyiness, vertigo, syncope TECHNIQUE: Contiguous axial imaging performed through the brain. Bone and soft tissue windows. Sagittal and coronal reformats reviewed. All CT scans at [facility] use at least one of these dose optimization techniques: automated exposure control; mA and/or kV adjustment per patient size (includes targeted exams where dose is matched to clinical indication); or iterative reconstruction. DLP: 1062.94 mGy.cm COMPARISON: None available. No acute intracranial hemorrhage, midline shift or mass effect. No atrophy or prior infarcts or herniation. Ventricles: Normal size with no hydrocephalus. Paranasal sinuses: Small air-fluid level LEFT maxillary sinus. Mastoid air cells: Well pneumatized. Calvarium and scalp: Skull is intact with no soft tissue edema or swelling. CT/CT head wo con* [id number] IMPRESSION: Negative head CT. LEFT maxillary sinusitis.
[2025-04-10 13:59] VITALS: BP 142/95; PULSE 90; RESP 18; TEMP 36.7; O2SAT 98; BMI 22.8
--- NOTE | 2025-04-10 14:02 | ED_ITS ---
HPI - General Adult 2 General: Chief complaint: Dizziness Stated complaint: headache, verigo Time Seen by Provider: 04/10/25 13:55 History of Present Illness: 39-year-old male presented the emergency room as a walk-in with complaints of headache and vertigo while he is in registration and near syncopal episode. He did not standing for a bit he had a aura that he was about to pass out he did not strike his head there was not a complete loss of consciousness. Associated symptoms: Deny chest pain, dyspnea or rash Related Data Home Medications ?Medication ?Instructions ?Recorded ?Confirmed diclofenac sodium 1 % topical gel 4 g topical QID 03/2904/10/25 modafinil 200 mg tablet 400 mg PO QAM 04/10/2504/10 Previous Rx's ?Medication ?Instructions ?Recorded lorazepam 1 mg tablet (Ativan) 1 mg PO Q6H PRN nausea and 04/10/25 vomiting #20 tabs Allergies Allergy/AdvReac Type Severity Reaction Status Date / Time No Known Allergies Allergy Verified 05/25/24 08:56 Review of Systems 2 Const: Denies: fever(s) or chills Card: Denies: chest pain Resp: Denies: dyspnea GI: Denies: abdominal pain : Denies: dysuria, urinary frequency or urinary urgency Musc: Denies: neck pain or back pain Skin/Breast: Denies: rash PFSH ED 2 PFSH: Medical History PTSD (post-traumatic stress disorder) Traumatic brain injury Alopecia areata Concussion with loss of consciousness of unspecified duration, initial encounter Knee pain Major depressive disorder, recurrent, unspecified Muscle spasm of back Other intervertebral disc degeneration, lumbar region Segmental and somatic dysfunction of cervical region Segmental and somatic dysfunction of lumbar region Family History Other Cancer Hypertension Denies family history of Diabetes CAD (coronary artery disease) Stroke Social History Smoking and tobacco/nicotine status: never used tobacco/nicotine Alcohol intake: current Alcohol intake frequency: holidays/special occasions only Substance/Drug Use: never Physical Exam 2 Const: ORIENTATION/CONSCIOUSNESS: Yes awake HENMT: COMMON NORMALS: normocephalic, atraumatic and hearing grossly normal bilaterally HEAD & SCALP: normocephalic and atraumatic Resp: COMMON NORMALS: normal respiratory effort, No retractions, No use of accessory muscles and clear to auscultation bilaterally AUSCULTATION: clear to auscultation bilaterally Cardio: COMMON NORMALS: regular rate, regular rhythm and No murmurs present (Cardio) RATE: regular rate RHYTHM: regular rhythm GI: COMMON NORMALS: Soft to palpation and No hepatosplenomegaly present A USCULTATION: Yes normoactive bowel sounds PALPATION: Yes Soft to palpation, No Tenderness to palpation present (GI), No Guarding due to palpation present (GI) and Yes No hepatosplenomegaly present Extremity: COMMON NORMALS: normal to inspection, capillary refill normal, no clubbing, cyanosis or edema, no calf tenderness and no pedal edema Skin: COMMON NORMALS: no rashes or lesions noted GENERAL SKIN EXAM: no rashes or lesions noted Course 2 Vital Signs: Vital signs: Vital Signs Temperature 98.1 F 04/10/25 13:59 Pulse Rate 57 L 04/10/25 18:20 Respiratory Rate 16 04/10/25 18:20 Blood Pressure 93/56 04/10/25 18:20 Pulse Oximetry 98 04/10/25 18:20 Oxygen Delivery Me thod Room Air 04/10/25 18:05 [facility] - General Adult Medical Decision Making Patient is having laryngitis is symptoms are reproducible. He has no focal neurologic deficits noted. Suspect the episode in the lobby was a episode of orthostasis. Will discharge patient home with Ativan to use as needed and have him follow-up with his primary care doctor. Lab Data 04/10/25 14:00 04/10/25 14:[address] 04/10/25 13:55 IMPRESSION: Negative head CT. LEFT maxillary sinusitis. Cervical Spine CT 04/10/25 14:28 IMPRESSION: No cervical spine fracture. Laboratory Results WBC 7.50 10^3/uL (3.29-11.43) 04/10/25 14:00 RBC 5.71 10^6/uL (3.85-5.65) H 04/10/25 14:00 Hgb 16.30 g/dL (11.27-16.99) 04/10/25 14:00 Hct 48.9 % (37-53) 04/10/25 14:00 MCV 85.6 fl (82-101) 04/10/25 14:00 MCH 28.5 pg (27-33) 04/10/25 14:00 MCHC 33.3 g/dL (30-55) 04/10/25 14:00 RDW 12.5 % (12.1-15.1) 04/10/25 14:00 Plt Count 287 10^3/cmm (157-399) 04/10/25 14:00 MPV 9.2 fL (7.4-10.4) 04/10/25 14:00 Neut % (Auto) 64.2 % 04/10/25 14:00 Lymph % (Auto) 30.0 % 04/10/25 14:00 [place] % (Auto) 4.7 % 04/10/25 14:00 Eos % (Auto) 0.1 % 04/10/25 14:00 Baso % (Auto) 0.7 % 04/10/25 14:00 Neut # (Auto) 4.82 10^3/uL (1.8-7.7) 04/10/25 14:00 Lymph # (Auto) 2.3 10^3/uL (0.8-4.8) 04/10/25 14:00 [place] # (Auto) 0.4 10^3/uL (0.2-0.9) 04/10/25 14:00 Eos # (Auto) 0.0 10^3/uL (0.0-0.8) 04/10/25 14:00 Baso # (Auto) 0.1 10^3/uL (0.0-0.1) 04/10/25 14:00 Nucleated RBC % (auto) 0 % 04/10/25 14:00 Nucleated RBCs # 0.0 /100WBC 04/10/25 14:00 Sodium 140 mmol/L (136-145) 04/10/25 14:00 Potassium 3.6 mmol/L (3.5-5.1) 04/10/25 14:00 Chloride 102 mmol/L (98-107) 04/10/25 14:00 Carbon Dioxide 22 mmol/L (22-29) 04/10/25 14:00 Anion Gap 19.6 (5-19) H 04/10/25 14:00 BUN 15 mg/dL (6-20) 04/10/25 14:00 Creatinine 1.1 mg/dL (0.7-1.2) 04/10/25 14:00 GFR Calculation 75.3 mL/min (90-130) L 04/10/25 14:00 Glucose 93 mg/dL (65-115) 04/10/25 14:00 Calculated Osmolality 291 mOsm/kg (285-295) 04/10/25 14:00 Calcium 9.4 mg/dL (8.5-10.5) 04/10/25 14:00 Total Bilirubin 1.1 mg/dL (0.15-1.2) 04/10/25 14:00 AST 28 U/L (0-40) 04/10/25 14:00 ALT 29 U/L (0-41) 04/10/25 14:00 Alkaline Phosphatase 55 U/L (40-130) 04/10/25 14:00 Total Protein 7.8 g/dL (6.6-8.7) 04/10/25 14:00 Albumin 4.7 g/dL (3.5-5.2) 04/10/25 14:00 Globulin 3.1 g/dL (1.3-4.6) 04/10/25 14:00 Urine Color Dark yellow (Yellow) A 04/10/25 16:22 Urine Appearance Clear (CLEAR) 04/10/25 16:22 Urine pH 5.5 (5-7) 04/10/25 16:22 Ur Specific [place] 1.025 (1.005-1.030) 04/10/25 16:22 Urine Protein Trace (Negative) A 04/10/25 16:22 Urine Glucose (UA) Negative (Normal) 04/10/25 16:22 Urine Ketones 3+ (Negative) H 04/10/25 16:22 Urine Blood Negative (Negative) 04/10/25 16:22 Urine Nitrate Negative (Negative) 04/10/25 16:22 Urine Bilirubin Negative (Negative) 04/10/25 16:22 Urine Urobilinogen 1.0 mg/dL (Negative) 04/10/25 16:22 Ur Leukocyte Esterase Negative (Negative) 04/10/25 16:22 Urine RBC 0-2 /hpf (0-2) 04/10/25 16:22 Urine WBC 0-5 /hpf (0-5) 04/10/25 16:22 Ur Squamous Epith Cells 0-5 /hpf (0-5) 04/10/25 16:22 Amorphous Sediment Not Reportable 04/10/25 16:22 Urine Bacteria None seen /hpf (NONE) 04/10/25 16:22 Hyaline Casts 3.30 /lpf 04/10/25 16:22 All radiology interpretation(s) finalized by discharge Discharge Plan Discharge Patient Disposition: Home Clinical Impression: Labyrinthitis, Headache Condition: Stable Prescriptions: New lorazepam [Ativan] 1 mg tablet 1 mg PO Q6H PRN (Reason: nausea and vomiting) Qty: 20 0RF No Action modafinil 200 mg Tablet 400 mg PO QAM diclofenac sodium 1 % Gel 4 g TOPICAL QID Rx Instructions: apply to single knee, ankle, foot; for foot includes sole/toes/top of foot Discharge Orders: Discharge ED (Routine); Ordered 04/10/25 Ordered By: Ramone Billings Referrals: Olive Oconnor FNP [Primary Care Provider, Nurse Practitioner] Discharge Diet: Clear Liquid Discharge Activity: Increase activity as tolerated Patient Instructions: Opioid Safety, Pain Management Activity Restrictions/Additional Instructions: Thank you for choosing [facility] for your healthcare needs today. It is very important that you follow up as instructed or that you return to the Emergency Department should you have concerns or if your condition changes or worsens in any way. You were seen in the emergency room with complaints of dizziness lightheadedness and syncopal episode. There was signs that you are volume depleted you are given IV fluids. CT of your head and neck were unremarkable other laboratory test did not show any other significant abnormalities your hemoglobin and white count were normal. Your physical exam did not have any other significant findings. Will discharge you home with a clear liquid diet for 24 to 48 hours and advance as tolerated. Give Ativan to use as needed for nausea vomiting and dizziness. Return to the emergency for further problems. Print Language: Com[place]an Coding Level of Care Code ED Aviation Safety Equipment Technician for Aileen Canela
[2025-04-10 14:05] LABS: Basophils # 0.1 10^3/uL (0.0-0.1); Basophils % 0.7 %; Eosinophils % 0.1 %; Hematocrit 48.9 % (37-53); Lymphocytes # 2.3 10^3/uL (0.8-4.8); Mean Corpuscular HGB Conc 33.3 g/dL (30-55); Mean Corpuscular Hemoglobin 28.5 pg (27-33); Mean Corpuscular Volume 85.6 fl (82-101); Mean Platelet Volume 9.2 fL (7.4-10.4); Monocytes # 0.4 10^3/uL (0.2-0.9); Monocytes % 4.7 %; Neutrophils # 4.82 10^3/uL (1.8-7.7); Neutrophils % 64.2 %; Nucleated Red Blood Cells % 0 %; Platelet Count 287 10^3/cmm (157-399); Red Blood Count 5.71 10^6/uL (3.85-5.65); Red Cell Distribution Width 12.5 % (12.1-15.1)
[2025-04-10 14:27] LABS: Alanine Aminotransferase 29 U/L (0-41); Albumin Level 4.7 g/dL (3.5-5.2); Alkaline Phosphatase 55 U/L (40-130); Anion Gap 19.6 (5-19); Aspartate Amino Transferase 28 U/L (0-40); Blood Urea Nitrogen 15 mg/dL (6-20); Calcium 9.4 mg/dL (8.5-10.5); Carbon Dioxide 22 mmol/L (22-29); Chloride 102 mmol/L (98-107); Creatinine Clr Calc Pharmacy 88.7668; Globulin 3.1 g/dL (1.3-4.6); Glomerular Filtration Rate 75.3 mL/min (90-130); Glucose 93 mg/dL (65-115); Osmolality Calculated 291 mOsm/kg (285-295); Potassium 3.6 mmol/L (3.5-5.1); Sodium 140 mmol/L (136-145); Total Bilirubin 1.1 mg/dL (0.15-1.2); Total Protein 7.8 g/dL (6.6-8.7)
--- NOTE | 2025-04-10 14:28 | CT_ITS ---
WS: [id number] CT CERVICAL SPINE HISTORY: trauma TECHNIQUE: Contiguous 2.0 mm axial imaging performed through the entire cervical spine. Sagittal and coronal reformats also performed. All CT scans at [facility] use at least one of these dose optimization techniques: automated exposure control; mA and/or kV adjustment per patient size (includes targeted exams where dose is matched to clinical indication); or iterative reconstruction. DLP: 202.17 mGy.cm COMPARISON: CT chest 06/18/2023 Normal cervical alignment. Craniocervical junction, atlantodental interval and C1-C2 alignment is normal. C2-C3: Normal. C3-C4: Normal. C4-C5: Normal. C5-C6: Normal. C6-C7: Normal. C7-T1: Normal. Soft tissues are normal. Lung apices are clear. CT/CT cervical spin wo con* [id number] IMPRESSION: No cervical spine fracture.
[2025-04-10] MEDS: sodium chloride 0.9% 1,000 ML 999 ML IV ×2 (14:43→17:00)
[2025-04-10 14:48] VITALS: BP 139/82; PULSE 81; RESP 16; O2SAT 97
[2025-04-10] MEDS: ketorolac 30 mg/mL INJ IVP (14:58)
[2025-04-10] MEDS: meclizine 25 mg tablet PO (14:58)
--- NOTE | 2025-04-10 15:12 | ECG_ITS ---
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
[2025-04-10 16:46] LABS: Bilirubin Urine Negative (Negative); Blood Urine Negative (Negative); Glucose Urine UA Negative (Normal); Ketones Urine 3+ (Negative); Leukocyte Esterase Urine Negative (Negative); Nitrate Urine Negative (Negative); Protein Urine Trace (Negative); Specific Gravity, Urine 1.025 (1.005-1.030); Urine Appearance Clear (CLEAR); Urine Color Dark Yellow (Yellow); pH Urine 5.5 (5-7)
[2025-04-10 16:51] LABS: Add Urine Microscopic? YES; Bacteria Urine None Seen /hpf; RBC Urine 0-2 /hpf (0-2); Squamous Epithelial Cell Urine 0-5 /hpf (0-5); WBC Urine 0-5 /hpf (0-5)
[2025-04-10] MEDS: diphenhydrAMINE 50 mg/mL SDV 1mL IVP (17:00)
[2025-04-10 17:21] VITALS: BP 115/70; PULSE 64; RESP 18; O2SAT 98
[2025-04-10 17:23] LABS: Add Urine Culture? No
[2025-04-10 17:57] VITALS: BP 115/64; BP 117/85; BP 128/78; PULSE 72; PULSE 80; PULSE 93
[2025-04-10 18:05] VITALS: BP 93/56; PULSE 57; RESP 16; O2SAT 98
[2025-04-10 18:20] VITALS: BP 93/56; PULSE 57; RESP 16; O2SAT 98
== END 2025-04-10 18:30 | disposition home or self-care (01) ==
PROVIDERS: Emergency Provider Family Medicine; PCP Nurse Practitioner
DX: H83.09 Labyrinthitis, unspecified ear (principal); R51.9 Headache, unspecified
CPT/HCPCS: 70450; 72125; 80053; 81001; 85025; 93005; 96374; 96375; 99285; J1200; J1885; J7030; J8597